=== PATIENT | female | born 1965 | race Two or more races ===

== ENCOUNTER 2016-08-14 11:05 | Emergency (ER) | payer SELFPAY ==
[2016-08-14] MEDS ORDERED: NORMAL SALINE 1000 ML 1,000 ML IV ONE (11:30)
[2016-08-14] MEDS ORDERED: DIPHENHYDRAMINE HCL 25 MG CAPSULE PO ONE (11:36)
[2016-08-14] MEDS ORDERED: METOCLOPRAMIDE HCL 10 MG TABLET PO ONE (11:36)
--- NOTE | 2016-08-14 11:40 | ER Document Report ---
ED Medical Screen (RME) - General Chief Complaint: Headache Stated Complaint: HEAD PAIN Notes: 50 y/o F presents to ED c/o persistent and worsening migraine-like headache for approximately the last 3 days. Reports associated right sided numbess and photophobia. Reports hx of migraines with similar s/s in the past. I have greeted and performed a rapid initial assessment of this patient. A comprehensive ED assessment and evaluation of the patient, analysis of test results and completion of the medical decision making process will be conducted by additional ED providers. TRAVEL OUTSIDE OF THE U[place] IN LAST 30 DAYS: No - Related Data Allergies/Adverse Reactions: Unable to Assess Allergy (Unverified 08/14/16 11:31) Past Medical History - Social History Frequency of alcohol use: None Drug Abuse: None Neurological Medical History: Reports: Hx Cerebrovascular Accident, Hx Migraine Renal/ Medical History: Denies: Hx Peritoneal Dialysis Past Surgical History: Reports: Hx Abdominal Surgery Physical Exam - Vital signs Vitals: Temp Pulse Resp BP Pulse Ox 98.1 F 131 H 16 134/78 H 96 08/14/16 11:26 08/14/16 11:08/14/16 11:08/14/16 11:08/14/16 11:26 - General General appearance: Alert In distress: None - HEENT Pupils: PERRL - Neurological Speech: Normal 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
[2016-08-14 11:57] LABS: ABSOLUTE LYMPHOCYTES (AUTO) 2.4 10^3/uL (0.5-4.7); ABSOLUTE MONOCYTES (AUTO) 0.8 10^3/uL (0.1-1.4); ABSOLUTE NEUT (AUTO) 8.7 10^3/uL (1.7-8.2); BASOPHILS % (AUTO) 0.4 % (0-2); EOSINOPHILS % (AUTO) 0.1 % (0-6); HEMATOCRIT 46.5 % (36.0-47.0); HEMOGLOBIN 15.3 g/dL (12.0-15.5); HGB HCT DIFFERENCE -0.6; LYMPHOCYTES % (AUTO) 20.2 % (13-45); MEAN CORPUSCULAR HEMOGLOBIN 30.5 pg (27.0-33.4); MEAN CORPUSCULAR HGB CONC 32.9 g/dL (32.0-36.0); MEAN CORPUSCULAR VOLUME 93 fl (80-97); MONOCYTES % (AUTO) 6.8 % (3-13); RED BLOOD COUNT 5.02 10^6/uL (3.72-5.28); RED CELL DISTRIBUTION WIDTH 13.4 % (11.5-14.0); SEGMENTED NEUTROPHILS % (AUTO) 72.5 % (42-78)
[2016-08-14 12:01] LABS: APPEARANCE,URINE SLIGHTLY-CLOUDY; BILIRUBIN,URINE NEGATIVE (NEGATIVE); GLUCOSE, URINE NEGATIVE (NEGATIVE); KETONES,URINE 80 mg/dL (NEGATIVE); LEUKOCYTE ESTERASE,URINE NEGATIVE (NEGATIVE); NITRITE,URINE NEGATIVE (NEGATIVE); PROTEIN,URINE NEGATIVE (NEGATIVE); URINE SPECIFIC GRAVITY 1.011; UROBILINOGEN,URINE NEGATIVE mg/dL (<2.0)
[2016-08-14 12:16] LABS: ALANINE AMINOTRANSFERASE 26 U/L (9-52); ALBUMIN 4.6 g/dL (3.5-5.0); ALKALINE PHOSPHATASE 100 U/L (38-126); ASPARTATE AMINO TRANSFERASE 27 U/L (14-36); BILIRUBIN,TOTAL 1.3 mg/dL (0.2-1.3); BLOOD UREA NITROGEN 17 mg/dL (7-20); CALCIUM 10.9 mg/dL (8.4-10.2); CARBON DIOXIDE 19 mmol/L (22-30); CHLORIDE 100 mmol/L (98-107); CREATININE RESULT 0.68 mg/dL (0.52-1.25); GLUCOSE 97 mg/dL (75-110); POTASSIUM 4.1 mmol/L (3.6-5.0); SODIUM 139.3 mmol/L (137-145); TOTAL PROTEIN 8.8 g/dL (6.3-8.2)
[2016-08-14 12:22] LABS: ANION GAP 20 (5-19)
[2016-08-14] MEDS ORDERED: KETOROLAC TROMETHAMINE INJ/PF 30 MG/1 ML SDV IV ONE (13:16)
--- NOTE | 2016-08-14 13:16 | ER Document Report ---
ED Headache - General Mode of Arrival: Ambulatory Information source: Patient, Relative TRAVEL OUTSIDE OF THE U.S. IN LAST 30 DAYS: No - HPI Patient complains to provider of: Headache Associated symptoms: Other - See above <JENNA BEARD - Last Filed: 08/14/16 13:39> <KHLOE KELLY - Last Filed: 08/14/16 14:29> - General Chief Complaint: Headache Stated Complaint: HEAD PAIN Notes: Patient is a 50 year old female, with a past medical history including migraines , who presents to the emergency department with her daughter complaining of a headache. Patient reports the headache began 4 days ago and is across her whole head. Patient was seen at this facility for similar complains in December 2015, patient states that she has had migraines since then but not as bad as this one. Patient also complains of vomiting last night and weakness in her right leg and right hand which she normally gets with her migraines and it goes away when the migraine ends. (JENNA BEARD) - Related Data Allergies/Adverse Reactions: Unable to Assess Allergy (Unverified 08/14/16 11:31) Past Medical History - General Information source: Patient - Social History Smoking Status: Never Smoker Frequency of alcohol use: None Drug Abuse: None Family History: Reviewed & Not Pertinent Patient has suicidal ideation: No Patient has homicidal ideation: No Neurological Medical History: Reports: Hx Cerebrovascular Accident, Hx Migraine Past Surgical History: Reports: Hx Abdominal Surgery <JENNA BAERD - Last Filed: 08/14/16 13:39> Review of Systems - Review of Systems Constitutional: See HPI, Weakness EENT: No symptoms reported Cardiovascular: No symptoms reported Respiratory: No symptoms reported Gastrointestinal: See HPI, Vomiting Genitourinary: No symptoms reported Female Genitourinary: No symptoms reported Musculoskeletal: No symptoms reported Skin: No symptoms reported Hematologic/Lymphatic: No symptoms reported Neurological/Psychological: See HPI, Headaches -: Yes All other systems reviewed and negative <JENNA BEARD - Last Filed: 08/14/16 13:39> Physical Exam - Vital signs Interpretation: Normal - General General appearance: Appears well, Alert - HEENT Head: Tenderness - Scalp muscles are tender to palpation Neck: Other - Posterior cervical muscles tender to palpation. No: Carotid bruit - Respiratory Respiratory status: No respiratory distress Chest status: Nontender Breath sounds: Normal Chest palpation: Normal - Cardiovascular Rhythm: Regular Heart sounds: Normal auscultation Murmur: No - Abdominal Inspection: Normal Distension: No distension Bowel sounds: Normal Tenderness: Nontender Organomegaly: No organomegaly - Extremities General upper extremity: Normal inspection, Normal ROM, Normal strength General lower extremity: Normal inspection, Normal ROM, Normal strength - Neurological Neuro grossly intact: Yes Cognition: Normal Orientation: AAOx4 [place] Coma Scale Eye Opening: Spontaneous [place] Coma Scale Verbal: Oriented [place] Coma Scale Motor: Obeys Commands Jesse Coma Scale Total: 15 Speech: Normal Motor strength normal: LUE, RUE - no weakness noted, patient used right extremeties during exam, LLE, RLE Sensory: Normal - Psychological Associated symptoms: Normal affect, Normal mood - Skin Skin Temperature: Warm Skin Moisture: Dry Skin Color: Normal <JENNA BEARD - Last Filed: 08/14/16 13:39> Course - Laboratory Result Diagrams: 08/14/16 11:35 08/14/16 11:35 <JENNA BEARD - Last Filed: 08/14/16 13:39> - Laboratory Result Diagrams: 08/14/16 11:35 08/14/16 11:35 <KHLOE KELLY - Last Filed: 08/14/16 14:29> - Re-evaluation Re-evalutation: 08/14/16 14:26 The patient is feeling much better. She has been eating and drinking. (KHLOE KELLY) - Vital Signs Vital signs: Temp Pulse Resp BP Pulse Ox 98.1 F 131 H 16 134/78 H 96 08/14/16 11:26 08/14/16 11:26 08/14/16 11:26 08/14/16 11:26 08/14/16 11:26 (JENNA BEARD) (KHLOE KELLY) - Laboratory Laboratory results interpreted by il: 08/14/16 08/14/16 08/14/16 11:35 11:35 11:40 WBC 12.0 H Absolute Neutrophils 8.7 H Carbon Dioxide 19 L Anion Gap 20 H Calcium 10.9 H Total Protein 8.8 H Urine Ketones 80 H (JENNA BEARD) (KHLOE KELLY) Discharge <JENNA BEARD - Last Filed: 08/14/16 13:39> <KHLOE KELLY - Last Filed: 08/14/16 14:29> - Discharge Clinical Impression: Dehydration Migraine headache Qualifiers: Migraine type: hemiplegic Status migrainosus presence: without status migrainosus Intractability: not intractable Qualified Code(s): 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 Migraines are caused by changes in the blood vessels of the head. Arteries go into spasm, often causing warning symptoms that a headache may begin soon. As the spasm goes away, the vessels dilate and throb, causing the pounding pain of a migraine headache. Migraines often cause nausea and vomiting. The treatment of headaches varies with severity and cause of pain. Not all headaches need pain shots -- in fact, there is evidence that using narcotics for headaches may make them worse in the long run. The physician will determine the therapy that's in your best interest for this particular headache. Medications are available that may prevent migraines, or stop them as they first occur. If one medication is not helpful, try another. If migraines are frequent, be patient -- follow the doctor's recommendations. Call the physician if you are worsening, or if new symptoms arise. REST IN A COOL, DARK QUIET ROOM. DRINK PLENTY OF FLUIDS. FOLLOW UP WITH A LOCAL MEDICAL DOCTOR TO TREAT YOUR HEADACHES. RETURN TO THE EMERGENCY ROOM IF ANY NEW OR WORSENING SYMPTOMS. Forms: Return to Work Scribe Attestation: 08/14/16 14:29 I personally performed the services described in the documentation, reviewed and edited the documentation which was dictated to the scribe in my presence, and it accurately records my words and actions. (KHLOE KELLY) Scribe Documentation - Scribe Written by Cara:: cara [place], 08/14/16, 1340 acting as scribe for :: Hermes <JENNA BEARD - Last Filed: 08/14/16 13:39>
[2016-08-14] MEDS ORDERED: DEXTROSE 5%-NORMAL SALINE 1,000 ML IV ONE (13:17)
[2016-08-14] MEDS ORDERED: MORPHINE SULFATE 10 MG/ML INJ IV ONE (13:17)
[2016-08-14 14:48] VITALS: BP 125/83
== END 2016-08-14 14:48 | disposition home or self-care (01) ==
LOC: ER 11:05
DX: G43.409 Hemiplegic migraine, not intractable, without status migrainosus (principal); R11.10 Vomiting, unspecified; Z86.73 Personal history of transient ischemic attack (TIA), and cerebral infarction without residual deficits
CPT/HCPCS: 99283; 96361; 96374; 96375; 36415; 85025; 80053; 81001; J1885; J2270; J7030

== ENCOUNTER 2017-02-26 13:49 | Emergency (ER) | payer SELFPAY ==
--- NOTE | 2017-02-26 15:50 | ER Document Report ---
ED General - General Chief Complaint: Chest Pain > 30 Stated Complaint: CHEST PAIN Time Seen by Provider: 02/26/17 15:43 Mode of Arrival: Ambulatory Information source: Patient Notes: 51-year-old female with a history of migraines, CVA in the past who presents with left-sided pain for 1-1/2 months. 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 She has a lot of pain in the left side of her neck, left upper extremity, left lower extremity. Patient denies any focal weakness. Patient denies any recent injuries or illnesses. She denies chest pain or shortness of breath. She states that the pain is worse with touching and moving the left side of her body. Patient has a history of migraines and her last migraine was 4 months ago approximately. She states she had a history of CVA when she lived in [place]: She states that her daughter had to call the hospital because she was (unresponsive). She states she was in the hospital for approximately 1 week at that time and was told she had a stroke. She denies having any residual focal weakness after that event. Medicines: Rauy-spf-ptzauyd aspirin, Advil Allergies: Imitrex Past surgical history: None Family physician: None TRAVEL OUTSIDE OF THE U.[place]. IN LAST 30 DAYS: No - HPI Onset: Other - last 1-2 months Onset/Duration: Persistent Quality of pain: Dull Severity: Moderate Pain Level: 3 Associated symptoms: denies: Chest pain, Fever, Nausea, Vomiting, Shortness of breath Exacerbated by: Movement Relieved by: Remaining still Similar symptoms previously: Yes Recently seen / treated by doctor: No - Related Data Allergies/Adverse Reactions: Unable to Assess Allergy (Verified 02/26/17 14:25) Past Medical History - General Information source: Patient - Social History Smoking Status: Never Smoker Cigarette use (# per day): No Chew tobacco use (# tins/day): No Frequency of alcohol use: None Drug Abuse: None Lives with: Spouse/Significant other Family History: Reviewed & Not Pertinent Patient has suicidal ideation: No Patient has homicidal ideation: No - Past Medical History Cardiac Medical History: Reports: Hx Hypertension Pulmonary Medical History: Reports: None Neurological Medical History: Reports: Hx Cerebrovascular Accident, Hx Migraine Renal/ Medical History: Denies: Hx Peritoneal Dialysis Malignancy Medical History: Reports: None GI Medical History: Reports: None Musculoskeltal Medical History: Reports None Skin Medical History: Reports None Psychiatric Medical History: Reports: None Past Surgical History: Reports: Hx Abdominal Surgery Review of Systems - Review of Systems Constitutional: denies: Chills, Fever EENT: No symptoms reported Cardiovascular: No symptoms reported Respiratory: No symptoms reported Gastrointestinal: No symptoms reported Genitourinary: No symptoms reported Female Genitourinary: No symptoms reported Musculoskeletal: See HPI Skin: No symptoms reported Hematologic/Lymphatic: No symptoms reported Neurological/Psychological: Anxiety. denies: Sensory change, Weakness, Seizure , Lost consciousness, Speech impairment, Numbness Physical Exam - Vital signs Vitals: Temp Pulse Resp BP Pulse Ox 98.4 F 85 16 139/76 H 100 02/26/17 14:22 02/26/17 14:22 02/26/17 14:22 02/26/17 14:22 02/26/17 14:22 Notes: Physical exam: GENERAL: 51-year-old female, alert and oriented 3, no acute distress. She is tearful on exam. HEAD: Atraumatic, normocephalic. EYES: Pupils equal round and reactive to light, extraocular movements intact, sclera anicteric, conjunctiva are normal. ENT: TMs normal, nares patent, oropharynx clear without exudates. Moist mucous membranes. NECK: Normal range of motion, supple without lymphadenopathy or JVD. LUNGS: Breath sounds clear to auscultation bilaterally and equal. No wheezes rales or rhonchi. HEART: Regular rate and rhythm without murmurs, rubs or gallops. ABDOMEN: Soft, normoactive bowel sounds. No tenderness to palpation. No guarding, no rebound. No masses appreciated. EXTREMITIES: Normal range of motion, no pitting or edema. No clubbing or cyanosis. NEUROLOGICAL: Cranial nerves II through XII grossly intact. Motor 5/5, sensory grossly intact, and visual lomas are intact, she knows the month and her age correctly, she is able to follow commands, she is got a normal horizontal gaze, there is no facial palsy, cerebellar test good, normal speech, there is no dysarthria, extinction or inattention. NIH is 0 (no evidence of stroke). PSYCH: Normal mood, normal affect. SKIN: Warm, Dry, normal turgor, no rashes or lesions noted. Course - Vital Signs Vital signs: Temp Pulse Resp BP Pulse Ox 98.1 F 85 16 122/95 H 98 02/26/17 18:53 02/26/17 14:22 02/26/17 18:53 02/26/17 18:53 02/26/17 18:52 - Laboratory Result Diagrams: 02/26/17 16:45 02/26/17 16:45 Laboratory results interpreted by me: 02/26/17 16:45 Calcium 10.6 H - Diagnostic Test Radiology reviewed: Image reviewed, Reports reviewed - CT of the head shows no acute bleed or infarct - EKG Interpretation by Me Rate: Normal Rhythm: NSR - EKG shows normal sinus rhythm with a ventricular rate of 90, normal axis, no acute ST-T wave changes Discharge - Discharge Clinical Impression: Musculoskeletal pain, Radiculopathy cervical Condition: Stable Disposition: HOME, SELF-CARE Instructions: Radiculopathy ([facility]) Additional Instructions: As we discussed, CT of the head shows no evidence of strokes. Her EKG and blood work looked good. The CT of the neck does show some arthritis. 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 Take ibuprofen or Aleve as needed. It is important that you follow-up with the primary care doctor: I left the number for the [facility] in the chart. Forms: Return to Work Referrals: [facility] [Provider Group] - Follow up as needed ([facility] the hospital)
--- NOTE | 2017-02-26 16:52 | RADIOLOGY REPORT (SQ) ---
EXAM DESCRIPTION: CT HEAD WITHOUT COMPLETED DATE/TIME: 02/26/2017 4:30 pm REASON FOR STUDY: left side pain COMPARISON: 01/06/2016 TECHNIQUE: Axial images acquired through the brain without intravenous contrast. Images reviewed wi th bone, brain and subdural windows. Images stored on PACS. All CT scanners at this facility use dose modulation, iterative reconstruction, and/or weight based d osing when appropriate to reduce radiation dose to as low as reasonably achievable (ALARA). [facility]: Dose Right [facility]: CareDose [facility]: Dose Right [facility]: Teradose 4D [facility]: [employer] RADIATION DOSE: Up-to-date CT equipment and radiation dose reduction techniques were employed. CTDIv ol: 64.6 mGy. DLP: 1163 mGy-cm. mGy. LIMITATIONS: None. FINDINGS: VENTRICLES: Normal size and contour. CEREBRUM: No masses. No hemorrhage. No midline shift. Normal farley/white matter differentiation. N o evidence for acute infarction. CEREBELLUM: No masses. No hemorrhage. No alteration of density. No evidence for acute infarction. EXTRAAXIAL SPACES: No fluid collections. No masses. ORBITS AND GLOBE: No intra- or extraconal masses. Normal contour of globe without masses. CALVARIUM: No fracture. PARANASAL SINUSES: No fluid or mucosal thickening. SOFT TISSUES: No mass or hematoma. OTHER: No other significant finding. IMPRESSION: No acute intracranial findings. TECHNICAL DOCUMENTATION: JOB ID: [id number] Quality ID # [id number]: Final reports with documentation of one or more dose reduction techniques (e.g., Au tomated exposure control, adjustment of the mA and/or kV according to patient size, use of iterative reconstruction technique) 2010 [email or web address]- All Rights Reserved
--- NOTE | 2017-02-26 16:54 | RADIOLOGY REPORT (SQ) ---
EXAM DESCRIPTION: CT CERVICAL SPINE WITHOUT COMPLETED DATE/TIME: 02/26/2017 4:30 pm REASON FOR STUDY: jessica e pain COMPARISON: None. TECHNIQUE: Axial images acquired through the cervical spine without intravenous contrast. Images re viewed with lung, soft tissue and bone windows. Reconstructed coronal and sagittal MPR images review ed. Images stored on PACS. All CT scanners at this facility use dose modulation, iterative reconstruction, and/or weight based d osing when appropriate to reduce radiation dose to as low as reasonably achievable (ALARA). [facility]: Dose Right [facility]: CareDose [facility]: Dose Right [facility]: Teradose 4D [facility]: Smart [employer] RADIATION DOSE: Up-to-date CT equipment and radiation dose reduction techniques were employed. CTDIv ol: 18.9 mGy. DLP: 348 mGy-cm. mGy. LIMITATIONS: None. FINDINGS: ALIGNMENT: Anatomic. MINERALIZATION: Normal. VERTEBRAL BODIES: No fractures or dislocation. DISCS: Multilevel disc space narrowing with osteophytes. FACETS, LATERAL MASSES, POSTERIOR ELEMENTS: Facet arthropathy. No fractures. No dislocation. No ac demetrio findings. HARDWARE: None in the spine. VISUALIZED RIBS: No fractures. LUNG APICES AND SOFT TISSUES: No significant or acute findings. OTHER: No other significant finding. IMPRESSION: CHRONIC DEGENERATIVE CHANGES. NO ACUTE FINDINGS. TECHNICAL DOCUMENTATION: JOB ID: [id number] Quality ID # [id number]: Final reports with documentation of one or more dose reduction techniques (e.g., Au tomated exposure control, adjustment of the mA and/or kV according to patient size, use of iterative reconstruction technique) 2010 [employer]- All Rights Reserved
--- NOTE | 2017-02-26 16:55 | RADIOLOGY REPORT (SQ) ---
EXAM DESCRIPTION: CHEST PA/LAT COMPLETED DATE/TIME: 02/26/2017 4:32 pm REASON FOR STUDY: left side pain COMPARISON: None. EXAM PARAMETERS: NUMBER OF VIEWS: two views TECHNIQUE: Digital Frontal and Lateral radiographic views of the chest acquired. RADIATION DOSE: NA LIMITATIONS: none FINDINGS: LUNGS AND PLEURA: No opacities, masses or pneumothorax. No pleural effusion. MEDIASTINUM AND HILAR STRUCTURES: No masses or contour abnormalities. HEART AND VASCULAR STRUCTURES: Heart normal size. No evidence for failure. BONES: No acute findings. HARDWARE: None in the chest. OTHER: No other significant finding. IMPRESSION: NO SIGNIFICANT RADIOGRAPHIC FINDING IN THE CHEST. TECHNICAL DOCUMENTATION: JOB ID: [id number] [employer]- All Rights Reserved
--- NOTE | 2017-02-26 16:56 | EKG REPORT ---
SEVERITY:- NORMAL ECG - SINUS RHYTHM : Confirmed by: Derrick Johnson MD 26-Feb-2017 16:56:07
[2017-02-26 17:01] LABS: ABSOLUTE EOSINOPHILS # (AUTO) 0.1 10^3/uL (0.0-0.6); ABSOLUTE LYMPHOCYTES (AUTO) 2.3 10^3/uL (0.5-4.7); ABSOLUTE MONOCYTES (AUTO) 0.8 10^3/uL (0.1-1.4); ABSOLUTE NEUT (AUTO) 4.6 10^3/uL (1.7-8.2); BASOPHILS % (AUTO) 0.5 % (0-2); HEMATOCRIT 43.4 % (36.0-47.0); HEMOGLOBIN 14.4 g/dL (12.0-15.5); HGB HCT DIFFERENCE -0.2; LYMPHOCYTES % (AUTO) 29.7 % (13-45); MEAN CORPUSCULAR HEMOGLOBIN 31.2 pg (27.0-33.4); MEAN CORPUSCULAR HGB CONC 33.3 g/dL (32.0-36.0); MEAN CORPUSCULAR VOLUME 94 fl (80-97); MONOCYTES % (AUTO) 10.2 % (3-13); RED BLOOD COUNT 4.62 10^6/uL (3.72-5.28); RED CELL DISTRIBUTION WIDTH 13.3 % (11.5-14.0); SEGMENTED NEUTROPHILS % (AUTO) 58.6 % (42-78); WHITE BLOOD COUNT 7.9 10^3/uL (4.0-10.5)
[2017-02-26 17:19] LABS: ALANINE AMINOTRANSFERASE 35 U/L (9-52); ALBUMIN 4.4 g/dL (3.5-5.0); ALKALINE PHOSPHATASE 101 U/L (38-126); ANION GAP 10 (5-19); ASPARTATE AMINO TRANSFERASE 25 U/L (14-36); BILIRUBIN,DIRECT 0.2 mg/dL (0.0-0.4); BILIRUBIN,TOTAL 0.9 mg/dL (0.2-1.3); BLOOD UREA NITROGEN 14 mg/dL (7-20); CALCIUM 10.6 mg/dL (8.4-10.2); CARBON DIOXIDE 27 mmol/L (22-30); CHLORIDE 103 mmol/L (98-107); CREATINE KINASE 92 U/L (30-135); GLUCOSE 87 mg/dL (75-110); POTASSIUM 4.5 mmol/L (3.6-5.0); SODIUM 139.9 mmol/L (137-145); TOTAL PROTEIN 7.9 g/dL (6.3-8.2)
[2017-02-26 17:30] LABS: CREATINE KINASE MB 0.72 ng/mL (<4.55); TROPONIN I < 0.012 ng/mL
[2017-02-26 18:57] VITALS: BP 122/95
== END 2017-02-26 19:04 | disposition home or self-care (01) ==
LOC: ER 13:49
DX: M54.12 Radiculopathy, cervical region (principal); M54.2 Cervicalgia; M79.602 Pain in left arm; M79.605 Pain in left leg; R07.9 Chest pain, unspecified; I10 Essential (primary) hypertension; F41.9 Anxiety disorder, unspecified; Z86.73 Personal history of transient ischemic attack (TIA), and cerebral infarction without residual deficits; Z88.6 Allergy status to analgesic agent; Z79.82 Long term (current) use of aspirin; Z79.1 Long term (current) use of non-steroidal anti-inflammatories (NSAID)
CPT/HCPCS: 36415; 70450; 71020; 72125; 80053; 82550; 82553; 84484; 85025; 93005; 93010; 99285

== ENCOUNTER 2017-08-17 08:30 | Emergency (ER) | payer SELFPAY ==
--- NOTE | 2017-08-17 09:21 | ER Document Report ---
ED General - General Mode of Arrival: Wheelchair - able to ambulate Information source: Patient TRAVEL OUTSIDE OF THE [place].S. IN LAST 30 DAYS: No - General Chief Complaint: Chest Pain Stated Complaint: CHEST PAIN Time Seen by Provider: 08/17/17 09:12 Notes: Patient is a 51 year old female with a history of strokes presents to the emergency department complaining left sided pain onset 2 weeks ago worsening 4 days ago. Patient states the pain starts in her chest, goes into her back and down her left leg. Patient states that the pain is exacerbated with movement and deep breathing but relieved with a heating pad and being still. 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 Patient denies fevers, cough, or congestion. (MICHAEL BRISCOE) - Related Data Allergies/Adverse Reactions: sumatriptan [From Imitrex] Allergy (Verified 08/17/17 08:38) Past Medical History - General Information source: Patient - Social History Smoking Status: Former Smoker Chew tobacco use (# tins/day): No Frequency of alcohol use: Rare Drug Abuse: None Family History: Reviewed & Not Pertinent Patient has suicidal ideation: No Patient has homicidal ideation: No - Past Medical History Cardiac Medical History: Reports: Hx Hypertension Neurological Medical History: Reports: Hx Cerebrovascular Accident, Hx Migraine Past Surgical History: Reports: Hx Abdominal Surgery - Immunizations Hx Diphtheria, Pertussis, Tetanus Vaccination: Yes Review of Systems - Review of Systems Constitutional: No symptoms reported EENT: No symptoms reported Cardiovascular: No symptoms reported Respiratory: No symptoms reported Physical Exam - General General appearance: Appears well, Alert In distress: None - Vital signs Vitals: Temp Pulse Resp BP Pulse Ox 98.0 F 85 18 129/75 H 95 08/17/17 08:56 08/17/17 08:56 08/17/17 08:56 08/17/17 08:56 08/17/17 08:56 - Notes Notes: GENERAL: Alert, interacts well. No acute distress. LUNGS: Clear to auscultation bilaterally, no wheezes, rales, or rhonchi. No respiratory distress. Tender to palpation to the chest wall. HEART: Regular rate and rhythm. No murmurs, gallops, or rubs. EXTREMITIES: Reproducible tenderness to the left trapezius which is also tight, tender to palpation to the left thigh, not consistent with dissection. Normal gait. (MICHAEL BRISCOE) Course - Re-evaluation Re-evalutation: 08/17/17 09:21 Patient has been having pains for the last 2 weeks that are better with complete rest worse with movement. With her job she lifts heavy boxes and continues to do so. I will prescribe Flexeril and provide family medicine referral. If symptoms are continuing she may be a candidate for physical therapy. Also prescribed 2 week work excuse not to lift over 25 pounds. She also be prescribed a 5 day steroid pack. Do not feel that her signs and symptoms are consistent with angina or vascular etiologies her pain is reproducible with palpation worse with movement and better with rest (DEEPTI GUERRERO) - Vital Signs Vital signs: Temp Pulse Resp BP Pulse Ox 97.9 F 84 18 149/86 H 95 08/17/17 09:22 08/17/17 09:22 08/17/17 09:22 08/17/17 09:22 08/17/17 09:22 Discharge - Discharge Clinical Impression: Muscular pain Condition: Stable Disposition: HOME, SELF-CARE Prescriptions: Cyclobenzaprine HCl [Flexeril 10 mg Tablet] 10 mg PO TID #30 tablet Prednisone 40 mg PO DAILY #10 tablet Forms: Return to Work Scribe Documentation - Scribe Written by Oneyda:: Oneyda Carlson, 08/17/2017 09:46 acting as scribe for :: Joao
[2017-08-17 09:23] VITALS: BP 149/86
--- NOTE | 2017-08-17 12:00 | EKG REPORT ---
SEVERITY:- NORMAL ECG - SINUS RHYTHM : Confirmed by: Bethany Remy 17-Aug-2017 11:59:16
== END 2017-08-17 09:43 | disposition home or self-care (01) ==
LOC: ER 08:30
DX: M79.1 Myalgia (principal); R07.9 Chest pain, unspecified; Z87.891 Personal history of nicotine dependence; M79.605 Pain in left leg
CPT/HCPCS: 93005; 93010; 99283

== ENCOUNTER 2018-03-20 11:44 | Emergency (ER) | payer SELFPAY ==
[2018-03-20] MEDS ORDERED: ASPIRIN 81 MG TABLET, CHEWABLE PO ONE (12:38)
--- NOTE | 2018-03-20 12:42 | ER Document Report ---
ED Medical Screen (RME) - General Chief Complaint: Shortness Of Breath Stated Complaint: SHORTNESS OF BREATH,CHEST PAIN Time Seen by Provider: 03/20/18 12:25 Notes: RAPID MEDICAL EVALUATION DISCLOSURE I have seen this patient as part of a Rapid Medical Evaluation and, if applicable, placed any initially appropriate orders. The patient will be seen and fully evaluated, including a full history and physical exam, by a provider ( in Main ED or Fast Track) when a room becomes available. 52-year-old female here with complaints of chronic ongoing chest pain and shortness of breath for the past few months. She states that today it became worse and she had the chronic chest pain neck pain and left shoulder pain while she was sitting in the car just prior to arrival. Today she did not have any diaphoresis or lightheadedness. Denies previous history of RI. EXAM CTAB RRR TRAVEL OUTSIDE OF THE [place]. IN LAST 30 DAYS: No - Related Data Allergies/Adverse Reactions: sumatriptan [From Imitrex] Allergy (Verified 03/20/18 11:46) Past Medical History - Social History Chew tobacco use (# tins/day): No Frequency of alcohol use: Rare Drug Abuse: None - Past Medical History Cardiac Medical History: Reports: Hx Hypertension Neurological Medical History: Reports: Hx Cerebrovascular Accident, Hx Migraine Renal/ Medical History: Denies: Hx Peritoneal Dialysis Past Surgical History: Reports: Hx Abdominal Surgery - Immunizations Hx Diphtheria, Pertussis, Tetanus Vaccination: Yes Physical Exam - Vital signs Vitals: Temp Pulse Resp BP Pulse Ox 98.2 F 94 16 143/82 H 95 03/20/18 12:01 03/20/18 12:03/20/18 12:03/20/18 12:01 03/20/18 12:01 Course - Vital Signs Vital signs: Temp Pulse Resp BP Pulse Ox 98.2 F 94 16 143/82 H 95 03/20/18 12:01 03/20/18 12:01 03/20/18 12:31 03/20/18 12:01 03/20/18 12:01
[2018-03-20 13:07] LABS: ABSOLUTE EOSINOPHILS # (AUTO) 0.1 10^3/uL (0.0-0.6); ABSOLUTE LYMPHOCYTES (AUTO) 2.6 10^3/uL (0.5-4.7); ABSOLUTE MONOCYTES (AUTO) 0.9 10^3/uL (0.1-1.4); BASOPHILS % (AUTO) 0.4 % (0-2); EOSINOPHILS % (AUTO) 1.1 % (0-6); HEMATOCRIT 43.6 % (36.0-47.0); HEMOGLOBIN 14.5 g/dL (12.0-15.5); LYMPHOCYTES % (AUTO) 30.5 % (13-45); MEAN CORPUSCULAR HEMOGLOBIN 30.9 pg (27.0-33.4); MEAN CORPUSCULAR HGB CONC 33.3 g/dL (32.0-36.0); MEAN CORPUSCULAR VOLUME 93 fl (80-97); MONOCYTES % (AUTO) 10.2 % (3-13); PLATELET COUNT 342 10^3/uL (150-450); RED BLOOD COUNT 4.71 10^6/uL (3.72-5.28); RED CELL DISTRIBUTION WIDTH 13.2 % (11.5-14.0); SEGMENTED NEUTROPHILS % (AUTO) 57.8 % (42-78); TOTAL CELLS COUNTED % (AUTO) 100 %; WHITE BLOOD COUNT 8.6 10^3/uL (4.0-10.5)
--- NOTE | 2018-03-20 13:20 | RADIOLOGY REPORT (SQ) ---
EXAM DESCRIPTION: CHEST 2 VIEWS COMPLETED DATE/TIME: 03/20/2018 1:07 pm REASON FOR STUDY: CP SOB COMPARISON: 02/26/2017 two-view chest EXAM PARAMETERS: NUMBER OF VIEWS: two views TECHNIQUE: Digital Frontal and Lateral radiographic views of the chest acquired. RADIATION DOSE: NA LIMITATIONS: none FINDINGS: LUNGS AND PLEURA: No opacities, masses or pneumothorax. No pleural effusion. MEDIASTINUM AND HILAR STRUCTURES: No masses or contour abnormalities. HEART AND VASCULAR STRUCTURES: Heart normal size. No evidence for failure. BONES: No acute findings. HARDWARE: None in the chest. OTHER: No other significant finding. IMPRESSION: NO ACUTE RADIOGRAPHIC FINDING IN THE CHEST. TECHNICAL DOCUMENTATION: JOB ID: [id number] [employer]- All Rights Reserved Reading location - IP/workstation name: [email or web address]
[2018-03-20 13:27] LABS: ALANINE AMINOTRANSFERASE 40 U/L (9-52); ALBUMIN 4.5 g/dL (3.5-5.0); ALKALINE PHOSPHATASE 98 U/L (38-126); ANION GAP 12 (5-19); ASPARTATE AMINO TRANSFERASE 28 U/L (14-36); BILIRUBIN,DIRECT 0.2 mg/dL (0.0-0.4); BILIRUBIN,TOTAL 0.6 mg/dL (0.2-1.3); BLOOD UREA NITROGEN 14 mg/dL (7-20); CALCIUM 10.7 mg/dL (8.4-10.2); CARBON DIOXIDE 26 mmol/L (22-30); CHLORIDE 106 mmol/L (98-107); GLUCOSE 110 mg/dL (75-110); POTASSIUM 4.3 mmol/L (3.6-5.0); SODIUM 144.3 mmol/L (137-145)
--- NOTE | 2018-03-20 14:33 | ER Document Report ---
ED General - General Chief Complaint: Shortness Of Breath Stated Complaint: SHORTNESS OF BREATH,CHEST PAIN Time Seen by Provider: 03/20/18 12:25 Notes: 52-year-old female to emergency department complaining of left-sided chest pain for 2 months with some pain in the left posterior chest and left side of her neck. Hurts to take big deep breath. No cough. No prior history of pulmonary embolism or DVT. History of migraines. No fever, chills, sweats. TRAVEL OUTSIDE OF THE [place] IN LAST 30 DAYS: No - HPI Onset/Duration: Gradual, Constant Quality of pain: Achy, Stabbing Severity: Moderate Pain Level: 3 - Related Data Allergies/Adverse Reactions: sumatriptan [From Imitrex] Allergy (Verified 03/20/18 11:46) Past Medical History - General Information source: Patient - Social History Smoking Status: Former Smoker Chew tobacco use (# tins/day): No Frequency of alcohol use: Rare Drug Abuse: None Lives with: Family Family History: Reviewed & Not Pertinent Patient has suicidal ideation: No Patient has homicidal ideation: No - Past Medical History Cardiac Medical History: Reports: Hx Hypertension Neurological Medical History: Reports: Hx Cerebrovascular Accident, Hx Migraine Renal/ Medical History: Denies: Hx Peritoneal Dialysis Past Surgical History: Reports: Hx Abdominal Surgery - Immunizations Hx Diphtheria, Pertussis, Tetanus Vaccination: Yes Review of Systems - Review of Systems Constitutional: denies: Fever, Malaise, Weakness EENT: denies: Double vision, Difficulty swallowing, Throat swelling, Mouth pain Cardiovascular: Chest pain. denies: Palpitations, Heart racing, Dizziness Respiratory: Hurts to breathe. denies: Cough, Short of breath, Wheezing Gastrointestinal: denies: Abdominal pain, Diarrhea, Nausea, Vomiting Genitourinary: denies: Burning, Dysuria, Discharge Musculoskeletal: Back pain, Joint pain, Muscle pain, Muscle stiffness, Neck pain. denies: Joint swelling Hematologic/Lymphatic: denies: Anemia, Blood clots, Easy bleeding, Easy bruising Neurological/Psychological: denies: Confusion, Weakness, Numbness Physical Exam - Vital signs Vitals: Temp Pulse Resp BP Pulse Ox 98.2 F 94 16 143/82 H 95 03/20/18 12:01 03/20/18 12:01 03/20/18 12:01 03/20/18 12:01 03/20/18 12:01 Interpretation: Tachycardic - General General appearance: Appears well, Alert - HEENT Head: Normocephalic, Atraumatic Eyes: Normal Pupils: PERRL Neck: Normal. No: Brudzinski, Lymphadenopathy, Meningismus, Neck mass, Subcutaneous emphysema - Respiratory Respiratory status: No respiratory distress Chest status: Nontender Breath sounds: Normal Chest palpation: Normal - Cardiovascular Rhythm: Tachycardia Heart sounds: Normal auscultation Murmur: No Notes: The exquisite tenderness of the left pectoralis muscle and scalene's on the left anterior chest. - Abdominal Inspection: Normal Distension: No distension Bowel sounds: Normal Tenderness: Nontender Organomegaly: No organomegaly - Back Back: Normal, Tender - There is exquisite tenderness to palpation in the left posterior paraspinal muscles in the upper thoracic and cervical spine as well as the left trapezius and left sternocleidomastoid muscles. - Extremities General upper extremity: Normal inspection, Nontender, Normal color, Normal ROM , Normal temperature General lower extremity: Normal inspection, Nontender, Normal color, Normal ROM , Normal temperature, Normal weight bearing. No: Michael's sign - Neurological Neuro grossly intact: Yes Cognition: Normal Orientation: AAOx4 Jesse Coma Scale Eye Opening: Spontaneous Jesse Coma Scale Verbal: Oriented Gage Coma Scale Motor: Obeys Commands Gage Coma Scale Total: 15 Speech: Normal Motor strength normal: LUE, RUE, LLE, RLE Sensory: Normal - Psychological Associated symptoms: Normal affect, Normal mood - Skin Skin Temperature: Warm Skin Moisture: Dry Skin Color: Normal Course - Re-evaluation Re-evalutation: 03/20/18 17:28 Laboratory 03/20/18 03/20/18 03/20/18 12:43 12:43 12:43 WBC 8.6 RBC 4.71 Hgb 14.5 Hct 43.6 MCV 93 MCH 30.9 MCHC 33.3 RDW 13.2 Plt Count 342 Seg Neutrophils % 57.8 Lymphocytes % 30.5 Monocytes % 10.2 Eosinophils % 1.1 Basophils % 0.4 Absolute Neutrophils 5.0 Absolute Lymphocytes 2.6 Absolute Monocytes 0.9 Absolute Eosinophils 0.1 Absolute Basophils 0.0 Sodium 144.3 Potassium 4.3 Chloride 106 Carbon Dioxide 26 Anion Gap 12 BUN 14 Creatinine 0.58 Est GFR ( Amer) > 60 Est GFR (Non-Af Amer) > 60 Glucose 110 Calcium 10.7 H Total Bilirubin 0.6 Direct Bilirubin 0.2 Neonat Total Bilirubin Not Reportable Neonat Direct Bilirubin Not Reportable Neonat Indirect Bili Not Reportable AST 28 ALT 40 Alkaline Phosphatase 98 Troponin I < 0.012 Total Protein 8.0 Albumin 4.5 03/20/18 16:14 WBC RBC Hgb Hct MCV MCH MCHC RDW Plt Count Seg Neutrophils % Lymphocytes % Monocytes % Eosinophils % Basophils % Absolute Neutrophils Absolute Lymphocytes Absolute Monocytes Absolute Eosinophils Absolute Basophils Sodium Potassium Chloride Carbon Dioxide Anion Gap BUN Creatinine Est GFR ( Amer) Est GFR (Non-Af Amer) Glucose Calcium Total Bilirubin Direct Bilirubin Neonat Total Bilirubin Neonat Direct Bilirubin Neonat Indirect Bili AST ALT Alkaline Phosphatase Troponin I < 0.012 Total Protein Albumin Chest X-Ray 03/20/18 12:38 IMPRESSION: NO ACUTE RADIOGRAPHIC FINDING IN THE CHEST. Chest/Abdomen CTA 03/20/18 14:53 IMPRESSION: NORMAL CTA OF THE CHEST. NO PULMONARY EMBOLI. Soft Tissue Neck CT 03/20/18 14:53 IMPRESSION: NO SIGNIFICANT FINDING IN THE SOFT TISSUES OF THE NECK. 03/20/18 17:30 The CTA of the chest was performed to make sure there was no evidence of pulmonary embolism. I did a expanded CT scan of soft tissue of the neck to look for any kind of bony or muscular masses which are unremarkable. 2 sets of cardiac labs are negative. Likely this represents more of a musculoskeletal condition. I have explained this to the patient. Advised her to follow-up with a regular doctor for repeat evaluation and treatment and may be even outpatient stress testing. Think this is a very low risk at this time for cardiac issues. - Vital Signs Vital signs: Temp Pulse Resp BP Pulse Ox 98.2 F 94 23 H 135/79 H 95 03/20/18 12:01 03/20/18 12:01 03/20/18 17:02 03/20/18 17:02 03/20/18 17:02 - Laboratory Result Diagrams: 03/20/18 12:43 03/20/18 12:43 Laboratory results interpreted by me: 03/20/18 12:43 Calcium 10.7 H - EKG Interpretation by Me EKG shows normal: Sinus rhythm, [place], Intervals, QRS Complexes, ST-T Waves Discharge - Discharge Clinical Impression: Musculoskeletal chest pain Condition: Good Disposition: HOME, SELF-CARE Instructions: Chest Wall Pain ([facility]), Chest Pain of Unclear Cause ([facility]) Additional Instructions: Please follow-up with your regular doctor. Return for any worsening symptoms or concerns. Use the prescription medication that has been prescribed. The event the symptoms get worse he will need to speak with your doctor or return to the emergency department for repeat evaluation. Prescriptions: Baclofen [Baclofen 20 Mg Tablet] 20 mg PO QHS PRN 20 Days #20 tablet PRN Reason: Meloxicam [Mobic] 15 mg PO DAILY 15 Days #15 tablet Forms: Return to Work
[2018-03-20] MEDS ORDERED: KETOROLAC TROMETHAMINE INJ/PF 30 MG/1 ML SDV IV ONE (14:54)
--- NOTE | 2018-03-20 15:42 | RADIOLOGY REPORT (SQ) ---
EXAM DESCRIPTION: CTA CHEST COMPLETED DATE/TIME: 03/20/2018 3:28 pm REASON FOR STUDY: chest pain, sob, tachy COMPARISON: None. TECHNIQUE: CT scan of the chest performed using helical scanning technique with dynamic intravenous contrast injection. Images reviewed with lung, soft tissue and bone windows. Reconstructed coronal and sagittal MPR images reviewed. Additional 3 dimensional post-processing performed to develop Maximal Intensity Projection images (UT P). All images stored on PACS. All CT scanners at this facility use dose modulation, iterative reconstruction, and/or weight based d osing when appropriate to reduce radiation dose to as low as reasonably achievable (ALARA). [facility]: Dose Right [facility]: CareDose [facility]: Dose Right [facility]: Teradose 4D [facility]: XIFIN CONTRAST TYPE AND DOSE: contrast/concentration: Isovue 350.00 mg/ml; Total Contrast Delivered: 72.0 ml; Total Saline Delivered: 90.0 ml Contrast bolus adequate for pulmonary arteries and aorta. RENAL FUNCTION: BUN 14 creatinine 0.6 RADIATION DOSE: CT Rad equipment meets quality standard of care and radiation dose reduction techniq ues were employed. CTDIvol: 9.9 - 29.8 mGy. DLP: 1424 mGy-cm. . LIMITATIONS: None. FINDINGS: LUNGS AND PLEURA: No masses, infiltrates, or pneumothorax. No pleural effusions or pleura l calcifications. AORTA AND GREAT VESSELS: No aneurysm. No dissection. HEART: No pericardial effusion. No significant coronary artery calcifications. PULMONARY ARTERIES: No emboli visualized in the main pulmonary arteries or the segmental branches. HILAR AND MEDIASTINAL STRUCTURES: No identified masses or abnormal nodes. HARDWARE: None in the chest. UPPER ABDOMEN: No significant findings. Limited exam. THYROID AND OTHER SOFT TISSUES: No masses. No adenopathy. BONES: No acute or significant finding. 3D MIPS: Confirm above findings. OTHER: No other significant finding. IMPRESSION: NORMAL CTA OF THE CHEST. NO PULMONARY EMBOLI. COMMENT: Quality ID # [id number]: Final reports with documentation of one or more dose reduction techniques (e.g., Automated exposure control, adjustment of the mA and/or kV according to patient size, use of iterative reconstruction technique) TECHNICAL DOCUMENTATION: JOB ID: [id number] [employer]- All Rights Reserved Reading location - IP/workstation name: [email or web address]
--- NOTE | 2018-03-20 15:55 | RADIOLOGY REPORT (SQ) ---
EXAM DESCRIPTION: CT SOFT TISSUE NECK WITH COMPLETED DATE/TIME: 03/20/2018 3:28 pm REASON FOR STUDY: neck pain and swelling SHORTNESS OF BREATH, CHEST PAIN, NECK PAIN COMPARISON: CT chest 03/20/2018 TECHNIQUE: Post IV contrasted scanning from skull base through lung apices with review of bone, soft tissue and lung windows. Reconstructed coronal and sagittal MPR images reviewed. All images stored on PACS. All CT scanners at this facility use dose modulation, iterative reconstruction, and/or weight based d osing when appropriate to reduce radiation dose to as low as reasonably achievable (ALARA). [facility]: Dose Right [facility]: CareDose [facility]: Dose Right [facility]: Teradose 4D [facility]: [employer] CONTRAST TYPE AND DOSE: 57 mL IV Omnipaque 350- low osmolar. RENAL FUNCTION: Creatinine 0.6 RADIATION DOSE: 9.9 mGy LIMITATIONS: None. FINDINGS: SKULL BASE: Intact. Inferior brain parenchyma unremarkable. MAJOR SALIVARY GLANDS: No solid or cystic masses. No inflammatory changes. LYMPHADENOPATHY: No adenopathy. MUCOSAL MASSES OR ASYMMETRY: No mucosal masses or asymmetry. LARYNX/CORDS: No abnormal findings. VASCULAR STRUCTURES: The major vessels are patent. LUNG APICES: Clear. BONES: Mild diffuse degenerative disc changes in the cervical spine. There is C4-5 moderate central canal and high-grade bilateral foraminal narrowing. THYROID: Normal size. No masses. PARANASAL SINUSES: Clear. OTHER: No other significant finding. IMPRESSION: NO SIGNIFICANT FINDING IN THE SOFT TISSUES OF THE NECK. TECHNICAL DOCUMENTATION: JOB ID: [id number] Quality ID # [id number]: Final reports with documentation of one or more dose reduction techniques (e.g., Au tomated exposure control, adjustment of the mA and/or kV according to patient size, use of iterative reconstruction technique) 2010 [email or web address]- All Rights Reserved Reading location - IP/workstation name: [email or web address]
[2018-03-20 18:39] VITALS: BP 135/95
--- NOTE | 2018-03-20 19:54 | EKG REPORT ---
SEVERITY:- NORMAL ECG - SINUS RHYTHM : Confirmed by: Derrick Johnson MD 20-Mar-2018 19:53:29
== END 2018-03-20 18:39 | disposition home or self-care (01) ==
LOC: ER 11:44
DX: R07.89 Other chest pain (principal); R07.1 Chest pain on breathing; M54.2 Cervicalgia; M54.9 Dorsalgia, unspecified; M25.50 Pain in unspecified joint; R00.0 Tachycardia, unspecified; I10 Essential (primary) hypertension; Z88.6 Allergy status to analgesic agent; Z87.891 Personal history of nicotine dependence
CPT/HCPCS: 93005; 99285; 96374; 36415; 85025; 80053; 84484; 71046; 70491; 71275; 93010; J1885

== ENCOUNTER → 2020-02-07 | Outpatient (CLI) | payer SELFPAY ==
--- NOTE | 2020-02-07 12:22 | RADIOLOGY REPORT (SQ) ---
EXAM DESCRIPTION: CHEST PA/LATERAL IMAGES COMPLETED DATE/TIME: 02/07/2020 11:09 am REASON FOR STUDY: SHORTNESS OF BREATH; NECK PAIN COMPARISON: 03/20/2018 EXAM PARAMETERS: NUMBER OF VIEWS: two views TECHNIQUE: Digital Frontal and Lateral radiographic views of the chest acquired. RADIATION DOSE: NA LIMITATIONS: none FINDINGS: LUNGS AND PLEURA: No opacities, masses or pneumothorax. No pleural effusion. MEDIASTINUM AND HILAR STRUCTURES: No masses or contour abnormalities. HEART AND VASCULAR STRUCTURES: Heart normal size. No evidence for failure. BONES: No acute findings. HARDWARE: None in the chest. OTHER: No other significant finding. IMPRESSION: NO SIGNIFICANT RADIOGRAPHIC FINDING IN THE CHEST. TECHNICAL DOCUMENTATION: JOB ID: [id number] 2010 [employer]- All Rights Reserved Reading location - IP/workstation name: [email or web address]
--- NOTE | 2020-02-07 12:24 | RADIOLOGY REPORT (SQ) ---
EXAM DESCRIPTION: C SP 4 OR 5 VIEWS IMAGES COMPLETED DATE/TIME: 02/07/2020 11:09 am REASON FOR STUDY: SHORTNESS OF BREATH; NECK PAIN R06.02 SHORTNESS OF BREATH M54.2 CERVICALGIA COMPARISON: None. NUMBER OF VIEWS: Five views including obliques. TECHNIQUE: AP, lateral, obliques and odontoid radiographic images acquired of the cervical spine. LIMITATIONS: None. FINDINGS: MINERALIZATION: Normal. ALIGNMENT: Slight retrolisthesis of C4 on C5. VERTEBRAE: Maintained height. No fracture or worrisome bone lesion. DISCS: Multilevel disc space narrowing with osteophytes. POSTERIOR ELEMENTS: Pedicles and facets are intact. No posterior arch defects. Facet arthropathy is present. FORAMINA: Foraminal narrowing on the right at C4-5, C5-C6 and C6-C7. Foraminal narrowing on the left at C3-4, C4-5, C5-C6 and C6-C7. HARDWARE: None in the spine. PARASPINAL SOFT TISSUES: Normal. OTHER: No other significant finding. IMPRESSION: Multilevel spondylosis. TECHNICAL DOCUMENTATION: JOB ID: [id number] 2010 [employer]- All Rights Reserved Reading location - IP/workstation name: [email or web address]
== END ==
LOC: OD 10:32
PROVIDERS: ATTEND Physician Assistant
DX: M47.812 Spondylosis without myelopathy or radiculopathy, cervical region (principal); M54.2 Cervicalgia; R06.02 Shortness of breath
CPT/HCPCS: 71046; 72050